=== PATIENT | male | born 1980 | race Caucasian/White ===

== ENCOUNTER 2019-06-07 03:27 | Emergency (ER) | payer SELFPAY ==
[~2019-06-07] VITALS: Ht 185.4 cm; Wt 77.1 kg
--- NOTE | 2019-06-07 03:30 | NUR ---
ED Nurse Note: pt presents to ED in custody by [facility] for medical clearance. per pt he is detoxing from heroin and benzos for less than 24 hrs. pt denies N/V/D but does c/o 10/10 body pain
[2019-06-07 03:32] VITALS: BP 120/81
--- NOTE | 2019-06-07 03:32 | Emergency Room Report ---
History of Present Illness General Chief Complaint: To Be Triaged Source: Patient Present Illness HPI This is a 39-year-old male brought in by [facility] department for medical clearance. He said that he used heroin and benzodiazepine 24 hours ago. He needed clearance to be sent to [facility] for booking. Patient denies any withdrawal symptoms. No nausea no vomiting or diarrhea. No tremors. He did have whole body pain. 10 out of 10. He denies any other complaint. Patient History Past Medical History: see triage record, old chart reviewed Past Surgical History: none Pertinent Family History: none Social History: Reports: alcohol use, drug use Immunizations: other Reviewed Nursing Documentation: PMH: Agreed; PSxH: Agreed Review of Systems Eye: Denies: eye pain, blurred vision ENT: Denies: ear pain, nose congestion, throat swelling Respiratory: Denies: cough, shortness of breath Cardiovascular: Denies: chest pain, palpitations Gastrointestinal: Denies: abdominal pain, diarrhea, nausea, vomiting Musculoskeletal: Reports: muscle pain; Denies: back pain, joint pain Skin: Denies: rash Neurological: Denies: headache, numbness Endocrine: Denies: increased thirst, increased urine Hematologic/Lymphatic: Denies: easy bruising All Other Systems: negative except mentioned in HPI Physical Exam Sp02 EP Interpretation: reviewed, normal General Appearance: well appearing, no apparent distress, alert Head: normocephalic, atraumatic Eyes: bilateral eye PERRL, bilateral eye EOMI ENT: hearing grossly normal, normal pharynx Neck: full range of motion, supple, no meningismus Respiratory: chest non-tender, lungs clear, normal breath sounds Cardiovascular #1: regular rate, rhythm, no murmur Gastrointestinal: normal bowel sounds, non tender, no mass, no organomegaly, no bruit, non-distended Musculoskeletal: back normal, gait/station normal, normal range of motion Psychiatric: mood/affect normal Medical Decision Making Diagnostic Impression: Primary Impression: Heroin abuse Additional Impression: Benzodiazepine abuse ER Course This patient presents with substance abuse. He is here for medical clearance. At this moment in time, I see no evidence of withdrawal symptoms. Will discharge to [facility] for booking. He is going to the [facility]. They have 24-hour medical personnel there. The patient does go through withdrawal, he can be sent to [place]. Status: unchanged Disposition: D/C TO LAW ENFORCEMENT IN CUST Condition: Stable Additional Instructions: Follow-up with your doctor in 7 days. Abstain from drugs and alcohol. Return if symptoms worsen. Richy Rincon MD Jun 07, 2019 03:32
[2019-06-07 03:35] VITALS: BP 120/81
--- NOTE | 2019-06-07 03:36 | NUR ---
ER DISCHARGE NOTE: Patient is cleared to be discharged per ERMD, and is ok to book. pt is aox4, on room air, with stable vital signs. pt was given dc , pt was able to verbalize understanding, pt id band removed without complications. pt is able to ambulate with steady gait and left with [facility] Department with all belongings
== END 2019-06-07 03:50 ==
LOC: EMR 03:47
DX: Z02.89 Encounter for other administrative examinations (principal); F11.10 Opioid abuse, uncomplicated; F13.10 Sedative, hypnotic or anxiolytic abuse, uncomplicated
CPT/HCPCS: 99281